=== PATIENT | female | born 1940 | race American Indian/Alaskan Native ===

== ENCOUNTER 2017-04-18 11:48 | Emergency (ER) | payer MEDICARE ==
[2017-04-18 12:54] LABS: Basophils % (Auto) 0.8 % (0.0-1.8); Eosinophils % (Auto) 3.7 % (0.0-4.3); Hematocrit 39.3 % (30.3-42.9); Hemoglobin 12.9 gm/dl (10.1-14.3); Mean Corpuscular HGB Conc 33 % (30-34); Mean Corpuscular Hemoglobin 30 pg (28-32); Mean Corpuscular Volume 90 fl (79-97); Platelet Count 204 K/mm3 (140-440); Red Blood Count 4.35 M/mm3 (3.65-5.03); Red Cell Distribution Width 15.5 % (13.2-15.2); White Blood Count 4.9 K/mm3 (4.5-11.0)
[2017-04-18 13:07] LABS: BUN/Creatinine Ratio 5.21; Calcium 9.1 mg/dL (8.4-10.2); Chloride 102.9 mmol/L (98-107)
--- NOTE | 2017-04-18 13:12 | XRay Report ---
Chest 2 views: History: Pain left rib cage. Findings: Normal cardiomediastinal silhouette. Trachea is midline. Pleural thickening left CP angle with scarring. No acute consolidation. Impression: Left pleural thickening with scarring in the adjacent lung parenchyma.
--- NOTE | 2017-04-18 17:11 | Emergency Department Report ---
ED General Adult HPI - General Chief complaint: Fall Stated complaint: FALL, LEFT SIDE PAIN Time Seen by Provider: 04/18/17 15:21 Source: patient Mode of arrival: Ambulatory Limitations: No Limitations - History of Present Illness Initial comments: Pt is a 76-year-old female past history of end-stage renal disease and hypertension who presents status post fall. She was walking earlier on this morning when she had a fall. Patient tripped on an open vent that the daughter left open. Patient had a ground-level fall. Patient had no loss of consciousness. She fell on her left side she did not hit her head. Patient is able to ablate after the fall. Patient has no lightheadedness, no chest pain she has left-sided rib pain that is a 5 out 10 worse with movement better with rest. It is an achy type of pain that doesn't radiate. Patient is not complaining of any other symptoms. - Related Data Previous Rx's Medication Instructions Recorded Last Taken Type Acetaminophen [Shake That Ache] 1,000 mg PO Q6HR #30 tablet 04/18/17 Unknown Rx Allergies Allergy/AdvReac Type Severity Reaction Status Date / Time Unable to Assess Allergy Unverified 04/18/17 11:59 ED Review of Systems ROS: Stated complaint: FALL, LEFT SIDE PAIN Other details as noted in HPI Constitutional: denies: chills, fever Eyes: denies: eye pain, eye discharge, vision change ENT: denies: ear pain, throat pain Respiratory: denies: cough, shortness of breath, wheezing Cardiovascular: denies: chest pain, palpitations Endocrine: no symptoms reported Gastrointestinal: denies: abdominal pain, nausea, diarrhea Genitourinary: denies: urgency, dysuria, discharge Musculoskeletal: denies: back pain, joint swelling, arthralgia Skin: denies: rash, lesions Neurological: denies: headache, weakness, paresthesias Psychiatric: denies: anxiety, depression Hematological/Lymphatic: denies: easy bleeding, easy bruising ED Past Medical Hx - Past Medical History Previous Medical History?: Yes Hx Hypertension: Yes Hx Renal Disease: Yes Additional medical history: dialysis - Surgical History Additional Surgical History: fistula to left arm for dialysis - Social History Smoking Status: Never Smoker - Medications Home Medications: Home Medications Medication Instructions Recorded Confirmed Last Taken Type Acetaminophen [Shake That Ache] 1,000 mg PO Q6HR #30 tablet 04/18/17 Unknown Rx ED Physical Exam - General Limitations: No Limitations General appearance: alert, in no apparent distress - Head Head exam: Present: atraumatic, normocephalic - Eye Eye exam: Present: normal appearance - ENT ENT exam: Present: mucous membranes moist - Neck Neck exam: Present: normal inspection - Respiratory Respiratory exam: Present: normal lung sounds bilaterally, chest wall tenderness (left sided ). Absent: respiratory distress - Cardiovascular Cardiovascular Exam: Present: regular rate, normal rhythm. Absent: systolic murmur, diastolic murmur, rubs, gallop - GI/Abdominal GI/Abdominal exam: Present: soft, normal bowel sounds - Extremities Exam Extremities exam: Present: normal inspection - Back Exam Back exam: Present: normal inspection - Neurological Exam Neurological exam: Present: alert, oriented X3 - Psychiatric Psychiatric exam: Present: normal affect, normal mood - Skin Skin exam: Present: warm, dry, intact, normal color. Absent: rash ED Course Vital Signs 04/18/17 04/18/17 04/18/17 11:54 12:35 12:43 Temperature 97 F L Pulse Rate 101 H 91 H 93 H Respiratory 20 Rate Blood Pressure 201/101 Blood Pressure 186/72 [Left] O2 Sat by Pulse 100 100 Oximetry 04/18/17 04/18/17 04/18/17 12:46 13:00 13:15 Temperature Pulse Rate 92 H 90 90 Respiratory 15 10 L 10 L Rate Blood Pressure 163/65 162/72 141/91 Blood Pressure [Left] O2 Sat by Pulse 100 Oximetry 04/18/17 04/18/17 04/18/17 13:30 13:45 14:00 Temperature Pulse Rate 83 82 86 Respiratory 19 12 23 Rate Blood Pressure 165/71 165/76 176/75 Blood Pressure [Left] O2 Sat by Pulse Oximetry 04/18/17 04/18/17 04/18/17 14:15 14:30 14:45 Temperature Pulse Rate 84 86 85 Respiratory 19 20 15 Rate Blood Pressure 163/72 171/81 175/82 Blood Pressure [Left] O2 Sat by Pulse 94 96 99 Oximetry 04/18/17 04/18/17 04/18/17 15:00 15:15 15:30 Temperature Pulse Rate 85 84 83 Respiratory 18 19 21 Rate Blood Pressure 177/79 165/76 180/79 Blood Pressure [Left] O2 Sat by Pulse 98 97 96 Oximetry ED Medical Decision Making - Lab Data Result diagrams: 04/18/17 12:36 04/18/17 12:36 Lab Results 04/18/17 04/18/17 Range/Units 12:36 12:36 WBC 4.9 (4.5-11.0) K/mm3 RBC 4.35 (3.65-5.03) M/mm3 Hgb 12.9 (10.1-14.3) gm/dl Hct 39.3 (30.3-42.9) % MCV 90 (79-97) fl MCH 30 (28-32) pg MCHC 33 (30-34) % RDW 15.5 H (13.2-15.2) % Plt Count 204 (140-440) K/mm3 Lymph % (Auto) 18.3 (13.4-35.0) % [place] % (Auto) 5.2 (0.0-7.3) % Eos % (Auto) 3.7 (0.0-4.3) % Baso % (Auto) 0.8 (0.0-1.8) % Lymph # 0.9 L (1.2-5.4) K/mm3 [place] # 0.3 (0.0-0.8) K/mm3 Eos # 0.2 (0.0-0.4) K/mm3 Baso # 0.0 (0.0-0.1) K/mm3 Seg Neutrophils % 72.0 H (40.0-70.0) % Seg Neutrophils # 3.6 (1.8-7.7) K/mm3 Sodium 141 (137-145) mmol/L Potassium 4.0 (3.6-5.0) mmol/L Chloride 102.9 (98-107) mmol/L Carbon Dioxide 25 (22-30) mmol/L Anion Gap 17 mmol/L BUN 12 (7-17) mg/dL Creatinine 2.3 H (0.7-1.2) mg/dL Estimated GFR 25 ml/min BUN/Creatinine Ratio 5.21 % Glucose 144 H (65-100) mg/dL Calcium 9.1 (8.4-10.2) mg/dL - Radiology Data Radiology results: report reviewed, image reviewed Chest x-ray: Shows lung parenchymal scarring otherwise no acute cardiopulmonary disease. - Medical Decision Making Chief medical diagnosis: Left rib fracture Differential multiple diagnosis: Possible muscle hematoma, anemia I will get chest x-ray, CBC, CMP and oral analgesic pain medication Patient's chest x-ray is unremarkable for rib fracture. Patient's laboratory work shows elevated creatinine which is consistent with her chronic kidney disease. I'll send patient home with Tylenol and I will have patient follow up with PCP. Patient agrees with plan and additional verbal discharge instructions were given. Critical care attestation.: If time is entered above; I have spent that time in minutes in the direct care of this critically ill patient, excluding procedure time. ED Disposition Clinical Impression: Rib pain on left side Fall Qualifiers: Encounter type: initial encounter Qualified Code(s): W19.XXXA - Unspecified fall, initial encounter CKD (chronic kidney disease) Qualifiers: Chronic kidney disease stage: on chronic dialysis Qualified Code(s): N18.6 - End stage renal disease; Z99.2 - Dependence on renal dialysis Disposition: TO HOME OR SELFCARE Is pt being admited?: No Does the pt Need Aspirin: No Condition: Stable Instructions: Fall Prevention for Older Adults (ED) Prescriptions: Acetaminophen [Shake That Ache] 1,000 mg PO Q6HR #30 tablet Referrals: PRIMARY CARE, [Primary Care Provider] - 3-5 Days
[2017-04-18] MEDS ORDERED: TYLENOL PO ONE (17:51)
[2017-04-18] MEDS ORDERED: MOTRIN PO ONE (17:51)
[2017-04-18 19:59] VITALS: BP 186/87
== END 2017-04-18 19:30 | disposition home or self-care (01) ==
LOC: ED 11:48
DX: R07.81 Pleurodynia (principal); I13.11 Hypertensive heart and chronic kidney disease without heart failure, with stage 5 chronic kidney disease, or end stage renal disease; N18.6 End stage renal disease; Z99.2 Dependence on renal dialysis; W18.30XA Fall on same level, unspecified, initial encounter; Y93.9 Activity, unspecified; Y92.89 Other specified places as the place of occurrence of the external cause; Y99.9 Unspecified external cause status
CPT/HCPCS: 36415; 71020; 80048; 82962; 85025

== ENCOUNTER 2019-12-01 11:43 | Observation (INO) | payer MEDICARE ==
[2019-12-01] MEDS ORDERED: ONDANSETRON 4 MG/2 ML INJ IV ONE (12:36)
[2019-12-01] MEDS ORDERED: SODIUM CHLORIDE 0.9% 1000 ML 1,000 ML IV ONE (12:36)
[2019-12-01 13:20] LABS: Basophils # (Auto) 0.1 K/mm3 (0.0-0.1); Basophils % (Auto) 0.9 % (0.0-1.8); Eosinophils % (Auto) 0.1 % (0.0-4.3); Hemoglobin 12.6 gm/dl (10.1-14.3); Lymphocytes % (Auto) 12.1 % (13.4-35.0); Mean Corpuscular HGB Conc 33 % (30-34); Mean Corpuscular Volume 93 fl (79-97); Monocytes # (Auto) 0.7 K/mm3 (0.0-0.8); Monocytes % (Auto) 7.7 % (0.0-7.3); Platelet Count 245 K/mm3 (140-440); Red Cell Distribution Width 15.6 % (13.2-15.2)
--- NOTE | 2019-12-01 13:32 | XRay Report ---
CHEST 1 VIEW INDICATION: hypoxia. COMPARISON: 07/17/2019. FINDINGS: Support devices: None. Heart: Stable. Lungs/Pleura: Mild effusion/atelectasis at the bases right greater than left. Mild vascular congestio n. Additional findings: None. IMPRESSION: Mild changes of congestive failure. Signer Name: Lázaro Donahue MD Signed: 12/01/2019 1:28 PM Workstation Name: [id number]
[2019-12-01 13:37] LABS: Calcium 9.1 mg/dL (8.4-10.2)
--- NOTE | 2019-12-01 15:16 | Emergency Department Report ---
ED General Adult HPI - General Chief complaint: Weakness Stated complaint: WEAKNESS PUI?: No Time Seen by Provider: 12/01/19 12:18 Source: EMS Mode of arrival: Stretcher Limitations: No Limitations - History of Present Illness Initial comments: Patient is 79-year-old F Sammar[place] female with past medical history of hypertension diabetes and end-stage renal disease who goes to dialysis on Saturday who is presenting with weakness. Patient initially signed in stating that her bilateral legs were weak however on further questioning she states she is just weak all over. Patient states symptoms started yesterday. Patient had several episodes of nausea vomiting. Patient states the nausea has improved today. Patient denies shortness of breath however she states that when she walks I just feel really tired". She denies chest pain fevers chills diarrhea neck stiffness or sore throat at this time. Severity scale (0 -10): 0 - Related Data Home Medications Medication Instructions Recorded Confirmed Last Taken Acetaminophen [Shake That Ache] 1,000 mg PO Q6HR PRN 07/20/19 07/20/19 Unknown Previous Rx's Medication Instructions Recorded Last Taken Type Oseltamivir Phosphate [Tamiflu] 30 mg PO POSTHD 5 Days oralsyr 07/22/19 Unknown Rx Allergies Allergy/AdvReac Type Severity Reaction Status Date / Time No Known Allergies Allergy Unverified 04/18/17 19:55 ED Review of Systems ROS: Stated complaint: WEAKNESS Other details as noted in HPI Comment: All other systems reviewed and negative ED Past Medical Hx - Past Medical History Hx Hypertension: Yes Hx Diabetes: Yes Hx Renal Disease: Yes Additional medical history: dialysis - Surgical History Additional Surgical History: fistula to left arm for dialysis - Social History Smoking Status: Current Some Day Smoker Substance Use Type: None - Medications Home Medications: Home Medications Medication Instructions Recorded Confirmed Last Taken Type Acetaminophen [Shake That Ache] 1,000 mg PO Q6HR PRN 07/20/19 07/20/19 Unknown History Oseltamivir Phosphate [Tamiflu] 30 mg PO POSTHD 5 Days oralsyr 07/22/19 Unknown Rx ED Physical Exam - General Limitations: No Limitations General appearance: alert, in no apparent distress - Head Head exam: Present: atraumatic, normocephalic - Eye Eye exam: Present: normal appearance - ENT ENT exam: Present: mucous membranes moist - Neck Neck exam: Present: normal inspection - Respiratory Respiratory exam: Present: rales. Absent: normal lung sounds bilaterally, respiratory distress, wheezes, rhonchi, chest wall tenderness - Cardiovascular Cardiovascular Exam: Present: regular rate, normal rhythm, normal heart sounds. Absent: systolic murmur, diastolic murmur, rubs, gallop - GI/Abdominal GI/Abdominal exam: Present: soft, normal bowel sounds. Absent: distended, tenderness, guarding, rebound - Extremities Exam Extremities exam: Present: normal inspection - Back Exam Back exam: Present: normal inspection - Neurological Exam Neurological exam: Present: alert, oriented X3 - Psychiatric Psychiatric exam: Present: normal affect, normal mood - Skin Skin exam: Present: warm, dry, intact, normal color. Absent: rash ED Course Vital Signs 12/01/19 12/01/19 12/01/19 11:54 11:58 12:00 Temperature 99.5 F Pulse Rate 122 H 119 H 119 H Respiratory 23 18 17 Rate Blood Pressure 120/65 120/65 O2 Sat by Pulse 91 92 90 Oximetry 12/01/19 12/01/19 12/01/19 12:01 13:00 14:47 Temperature Pulse Rate 117 H 116 H Respiratory 15 20 24 Rate Blood Pressure 119/68 119/68 O2 Sat by Pulse 89 98 96 Oximetry ED Medical Decision Making - Lab Data Result diagrams: 12/01/19 12:35 12/01/19 12:45 Lab Results 12/01/19 12/01/19 Range/Units 12:35 12:45 WBC 8.6 (4.5-11.0) K/mm3 RBC 4.10 (3.65-5.03) M/mm3 Hgb 12.6 (10.1-14.3) gm/dl Hct 38.0 (30.3-42.9) % MCV 93 (79-97) fl MCH 31 (28-32) pg MCHC 33 (30-34) % RDW 15.6 H (13.2-15.2) % Plt Count 245 (140-440) K/mm3 Lymph % (Auto) 12.1 L (13.4-35.0) % [place] % (Auto) 7.7 H (0.0-7.3) % Eos % (Auto) 0.1 (0.0-4.3) % Baso % (Auto) 0.9 (0.0-1.8) % Lymph # 1.0 L (1.2-5.4) K/mm3 [place] # 0.7 (0.0-0.8) K/mm3 Eos # 0.0 (0.0-0.4) K/mm3 Baso # 0.1 (0.0-0.1) K/mm3 Seg Neutrophils % 79.2 H (40.0-70.0) % Seg Neutrophils # 6.8 (1.8-7.7) K/mm3 Sodium 140 (137-145) mmol/L Potassium 3.8 (3.6-5.0) mmol/L Chloride 98.2 (98-107) mmol/L Carbon Dioxide 24 (22-30) mmol/L Anion Gap 22 mmol/L BUN 28 H (7-17) mg/dL Creatinine 6.8 H (0.7-1.2) mg/dL Estimated GFR 7 ml/min BUN/Creatinine Ratio 4 % Glucose 137 H (65-100) mg/dL Calcium 9.1 (8.4-10.2) mg/dL - Radiology Data [facility] [address] [place] [address] XRay Report Signed Patient: ASHTYN WAYNE MR#: [id number] 1 : 1940 Acct:[id number] Age/Sex: 79 / F ADM Date: 12/01/19 Loc: ED Attending Dr: Ordering Physician: GWENDOLYN SILVEIRA MD Date of Service: 12/01/19 Procedure(s): XR chest 1V ap Accession Number(s): [id number] cc: GWENDOLYN SILVEIRA MD Fluoro Time In Minutes: CHEST 1 VIEW INDICATION: hypoxia. COMPARISON: 07/17/2019. FINDINGS: Support devices: None. Heart: Stable. Lungs/Pleura: Mild effusion/atelectasis at the bases right greater than left. Mild vascular congestion. Additional findings: None. IMPRESSION: Mild changes of congestive failure. Signer Name: Lázaro Donahue MD Signed: 12/01/2019 1:28 PM Workstation Name: [id number] - Medical Decision Making Patient is 79-year-old F [place] female who is presenting with generalized weakness. On arrival the patient's O2 sat was 89%. Patient responded well to oxygen. Chest x-ray is consistent with some mild fluid overload. Patient is not due for dialysis until tomorrow however does appear that she is requiring oxygen and will need to be admitted for observation. Her solar water heater installer has been consulted. Patient is remained slightly tachycardic. Patient does state that she makes urine and on initial exam patient was given a small amount of fluids to see if this will help with her tachycardia since she had several episodes of nausea vomiting yesterday with the possibility of mild dehydration. Once the x- ray was seen the fluids were discontinued. Patient states she is no longer actively vomiting or nauseous at this time. Critical care attestation.: If time is entered above; I have spent that time in minutes in the direct care of this critically ill patient, excluding procedure time. ED Disposition Clinical Impression: End-stage renal disease needing dialysis, Pulmonary edema, Hypoxia, Tachycardia Disposition: OP ADMIT IP TO THIS HOSP Is pt being admited?: Yes Does the pt Need Aspirin: No Condition: Stable Referrals: PRIMARY CARE, [Primary Care Provider] - 3-5 Days Time of Disposition: 15:16
[2019-12-01] MEDS ORDERED: ONDANSETRON 4 MG/2 ML INJ IV PRN (15:27)
--- NOTE | 2019-12-01 15:27 | History and Physical Report ---
History of Present Illness Chief complaint: I feel weak History of present illness: 79 YO Female with ESRD on HD(M,W,F), HTN, DM, Dementia, Nicotine Dependence presents to ED for evaluation. Patient states that she underwent dialysis yesterday and during dialysis she experienced generalized weakness, confusion, and fatigue. Patient states that the aforementioned symptoms have persisted overnight. Patient also reports difficulty with ambulating due to weakness. EMS notified and upon arrival the patient was found to be in distress and subsequently transported to [facility] for further evaluation and care. Patient seen and evaluated in the emergency department. Lab and imaging studies reviewed. Patient found to have end-stage renal disease complicated by dialysis disequilibrium syndrome. Patient placed in observation status and admitted to medical floor due to increased risk for decompensation. Nephrology team consulted in ED. Patient denies fever, chills, chest pain, palpitations, productive cough, skin rash, known ill contacts, or known exposure to COVID-19. Advanced care planning conducted in ED. Past History Past Medical History: diabetes, ESRD, hypertension, other (See HPI) Past Surgical History: Other (Dialysis access) Social history: , smoking Family history: diabetes, hypertension Medications and Allergies Allergies Allergy/AdvReac Type Severity Reaction Status Date / Time No Known Allergies Allergy Unverified 04/18/17 19:55 Home Medications Medication Instructions Recorded Confirmed Last Taken Type Acetaminophen [Shake That Ache] 1,000 mg PO Q6HR PRN 07/20/19 12/01/19 Unknown History Oseltamivir Phosphate [Tamiflu] 30 mg PO POSTHD 5 Days oralsyr 07/22/19 12/01/19 Unknown Rx Review of Systems Constitutional: fatigue, weakness, no weight gain, no fever, no chills Ears, nose, mouth and throat: no ear pain, no ear discharge, no tinnitis, no decreased hearing Breasts: no change in shape, no swelling, no mass Cardiovascular: no chest pain, no palpitations, no rapid/irregular heart beat, no edema Respiratory: no cough, no cough with sputum, no excessive sputum, no hemoptysis Gastrointestinal: nausea, no vomiting, no diarrhea, no constipation Genitourinary Female: no pelvic pain, no flank pain, no menorrhagia, no dysuria, no urinary frequency, no urgency Rectal: no pain, no incontinence, no bleeding Musculoskeletal: no neck stiffness, no neck pain, no shooting arm pain, no arm numbness/tingling, no low back pain Integumentary: no rash, no pruritis, no redness, no sores, no jaundice Neurological: no paralysis, no weakness, no parathesias, no numbness, no tingling Psychiatric: no anxiety, no memory loss, no change in sleep habits, no sleep disturbances, no insomnia Endocrine: no cold intolerance, no heat intolerance, no polyphagia, no excessive thirst, no polyuria Hematologic/Lymphatic: no easy bruising, no lymphadenopathy Allergic/Immunologic: no urticaria, no allergic rhinitis, no persistent infections Exam - Constitutional Vitals: Temp Pulse Resp BP Pulse Ox 99.5 F 116 H 24 119/68 96 12/01/19 11:58 12/01/19 14:47 12/01/19 14:47 12/01/19 14:47 12/01/19 14:47 General appearance: Present: mild distress - EENT Eyes: Present: PERRL ENT: hearing intact, clear oral mucosa - Neck Neck: Present: supple, normal ROM - Respiratory Respiratory effort: normal Respiratory: bilateral: CTA - Cardiovascular Heart Sounds: Present: S1 & S2. Absent: rub, click - Extremities Extremities: pulses symmetrical, No edema Peripheral Pulses: within normal limits - Abdominal General gastrointestinal: Present: soft, non-tender, non-distended, normal bowel sounds Female genitourinary: Present: normal - Integumentary Integumentary: Present: clear, warm, dry - Musculoskeletal Musculoskeletal: generalized weakness - Psychiatric Psychiatric: appropriate mood/affect, intact judgment & insight - Neurologic Neurologic: CNII-XII intact, moves all extremities, no gait normal Results - Labs CBC & Chem 7: 12/01/19 12:35 12/01/19 12:45 Labs: Abnormal lab results 12/01/19 12/01/19 Range/Units 12:35 12:45 RDW 15.6 H (13.2-15.2) % Lymph % (Auto) 12.1 L (13.4-35.0) % [place] % (Auto) 7.7 H (0.0-7.3) % Lymph # 1.0 L (1.2-5.4) K/mm3 Seg Neutrophils % 79.2 H (40.0-70.0) % BUN 28 H (7-17) mg/dL Creatinine 6.8 H (0.7-1.2) mg/dL Glucose 137 H (65-100) mg/dL Assessment and Plan - Patient Problems (1) End stage renal disease Current Visit: Yes Status: Acute Plan to address problem: Nephrology consulted in ED, strict I's/O, daily weight, monitor urine output every shift, BMP, repeat BMP in a.m., dialysis as per renal team. (2) Dialysis disequilibrium syndrome Current Visit: Yes Status: Acute Plan to address problem: BMP, supportive care, neuro check. IV fluid resuscitation as clinically indicated, encourage free water intake. (3) Hypertension Current Visit: Yes Status: Acute Qualifiers: Hypertension type: essential hypertension Qualified Code(s): I10 - E ssential (primary) hypertension Plan to address problem: Monitor blood pressure every shift, continue medical management. Supportive care. (4) Nicotine dependence Current Visit: Yes Status: Acute Qualifiers: Nicotine product type: cigarettes Substance use status: in withdrawal Qualified Code(s): F17.213 - Nicotine dependence, cigarettes, with withdrawal Plan to address problem: Smoking cessation counseling, supportive care, behavior change counseling. +15 minutes. (5) Diabetes mellitus Current Visit: Yes Status: Acute Plan to address problem: Sliding scale insulin therapy, Accu-Chek, consistent carbohydrate diet, hypoglycemia protocol (6) DVT prophylaxis Current Visit: No Status: Acute Plan to address problem: SCD to bilateral lower extremities while in bed, supportive care. Patient is ambulatory (7) Advance care planning Current Visit: Yes Status: Acute Plan to address problem: Patient is full code, disease education conducted, patient knowledges understanding and agreement with care plan, +30 minutes.
[2019-12-01] MEDS: ACETAMINOPHEN 325 MG TAB PO PRN (21:20)
[2019-12-02] MEDS ORDERED: SODIUM CHLORIDE 0.9% 100 ML IV PRN (06:15)
[2019-12-02 09:35] LABS: Calcium 8.8 mg/dL (8.4-10.2)
[2019-12-02 10:34] LABS: Hepatitis B Surface Antigen Non-Reactive (Negative); Hepatitis C Virus Antibody Non-Reactive (NonReactive)
[2019-12-02] MEDS ORDERED: SODIUM CHLORIDE*PRIMING MACHINE ONLY FOR DIALYSIS MC ONE (12:02)
--- NOTE | 2019-12-02 12:29 | Consultation ---
History of Present Illness - Reason for Consult Consult date: 12/02/19 end stage renal disease - History of Present Illness Mrs. Lemus is an 79yo with ESRD on HD MWF, hypertension, dementia who presented to the ED with generalized weakness impairing ability to ambulate. She reports being in usual state of health until dialysis. She reports episode of emesis during treatment. Following treatment, she felt weak, fatigued. EMS was called to patient's home and she was transported to the ED for evaluation. She denies fever, chills, chest pain, SOB, productive cough, dysuria. There is no hx of skin rash, known ill contacts, or known exposure to COVID-19 In the ED, patient was hypoxic requiring 2L NC oxygen. Work up was notable for CXR - mild vascular congestion, mild effusion/atelectasis. She has been admitted for evaluation. Temperature 100.4 overnight. Past History Past Medical History: diabetes, ESRD, hypertension, other (See HPI) Past Surgical History: Other (Dialysis access) Social history: , smoking Family history: diabetes, hypertension Medications and Allergies Allergies Allergy/AdvReac Type Severity Reaction Status Date / Time No Known Allergies Allergy Unverified 04/18/17 19:55 Home Medications Medication Instructions Recorded Confirmed Last Taken Type Acetaminophen [Shake That Ache] 1,000 mg PO Q6HR PRN 07/20/19 12/01/19 Unknown History Oseltamivir Phosphate [Tamiflu] 30 mg PO POSTHD 5 Days oralsyr 07/22/19 12/01/19 Unknown Rx Active Meds: Active Medications Acetaminophen (Tylenol) 650 mg PO Q4H PRN PRN Reason: Pain MILD(1-3)/Fever >100.5/BARRIENTOS Last Admin: 12/01/19 21:20 Dose: 650 mg Documented by: Sodium Chloride (Nacl 0.9%) 100 mls @ 999 mls/hr IV RAMU PRN PRN Reason: Hypotension Ondansetron HCl (Zofran) 4 mg IV Q8H PRN PRN Reason: Nausea And Vomiting Sodium Chloride (Sodium Chloride Flush Syringe 10 Ml) 10 ml IV BID DANIELLE Last Admin: 12/02/19 09:31 Dose: 10 ml Documented by: Sodium Chloride (Sodium Chloride Flush Syringe 10 Ml) 10 ml IV PRN PRN PRN Reason: LINE FLUSH Review of Systems All systems: negative Exam - Vital Signs Vital signs: Vital Signs Pulse Resp Pulse Ox 122 H 23 91 12/01/19 11:54 12/01/19 11:54 12/01/19 11:54 - General Appearance General appearance: well-developed, frail EENT: ATNC Respiratory: Clear to Ascultation Heart: regular, S1S2 Gastrointestinal: Present: normal. Absent: tenderness, distended Integumentary: no rash, warm and dry Neurologic: no focal deficit Musculoskeletal: Present: other (no edema) Psychiatric: cooperative Results - Lab Results 12/01/19 12:35 12/02/19 08:41 Most recent lab results Calcium 8.8 mg/dL (8.4-10.2) 12/02/19 08:41 Assessment and Plan Impression: * End stage renal disease * Acute hypoxic respiratory failure r/o pulmonary edema vs infectious etiology * Low grade fever * Generalized weakness * Anemia Plan: * Hemodialysis today * UF as tolerated * Continue MWF schedule * Will obtain blood cx in light of temp 100.4 in dialysis patient; can collect during HD * Will also order UA and urine cx if patient able to provide sample * Dose medications for renal function * Renal diet
--- NOTE | 2019-12-02 16:07 | Progress Note ---
Assessment and Plan - Patient Problems (1) End stage renal disease Current Visit: Yes Status: Acute Plan to address problem: Nephrology consulted in ED, strict I's/O, daily weight, monitor urine output every shift, BMP, repeat BMP in a.m., dialysis as per renal team. Discharge planning in a.m. pending postdialysis reevaluation. (2) Dialysis disequilibrium syndrome Current Visit: Yes Status: Acute Plan to address problem: BMP, supportive care, neuro check. IV fluid resuscitation as clinically indicated, encourage free water intake. (3) Hypertension Current Visit: Yes Status: Acute Qualifiers: Hypertension type: essential hypertension Qualified Code(s): I10 - Essential (primary) hypertension Plan to address problem: Monitor blood pressure every shift, continue medical management. Supportive care. (4) Nicotine dependence Current Visit: Yes Status: Acute Qualifiers: Nicotine product type: cigarettes Substance use status: in withdrawal Qualified Code(s): F17.213 - Nicotine dependence, cigarettes, with withdrawal Plan to address problem: Smoking cessation counseling, supportive care, behavior change counseling. +15 minutes. (5) Diabetes mellitus Current Visit: Yes Status: Acute Plan to address problem: Sliding scale insulin therapy, Accu-Chek, consistent carbohydrate diet, hypoglycemia protocol (6) DVT prophylaxis Current Visit: No Status: Acute Plan to address problem: SCD to bilateral lower extremities while in bed, supportive care. Patient is ambulatory (7) Advance care planning Current Visit: Yes Status: Acute History Interval history: 79 YO Female HD #2 with ESRD, Dialysis Disequilibrium Syndrome. Pt convalesced well overnight. Patient states that she feels somewhat better today. Patient denies fever, chills, chest pain, palpitations, shortness of breath, productive cough, or recent ill contacts. No reported nursing events today. Nephrology consulted. Dialysis schedule as per renal team. Discharge planning in a.m. Hospitalist Physical - Constitutional Vitals: Temp Pulse Resp BP Pulse Ox 98.7 F 115 H 16 131/69 98 12/02/19 14:44 12/02/19 14:44 12/02/19 14:44 12/02/19 14:44 12/02/19 08:16 General appearance: Present: mild distress - EENT Eyes: Present: PERRL ENT: hearing intact - Neck Neck: Present: supple - Respiratory Respiratory: bilateral: CTA - Cardiovascular Rhythm: regular Heart Sounds: Present: S1 & S2 - Extremities Extremities: no ischemia Peripheral Pulses: within normal limits - Abdominal General gastrointestinal: soft, non-tender, tender - Integumentary Integumentary: Present: clear, warm, dry - Psychiatric Psychiatric: appropriate mood/affect, cooperative - Neurologic Neurologic: CNII-XII intact Results - Labs CBC & Chem 7: 12/01/19 12:35 12/02/19 08:41 Labs: Laboratory Last Values WBC 8.6 K/mm3 (4.5-11.0) 12/01/19 12:35 RBC 4.10 M/mm3 (3.65-5.03) 12/01/19 12:35 Hgb 12.6 gm/dl (10.1-14.3) 12/01/19 12:35 Hct 38.0 % (30.3-42.9) 12/01/19 12:35 MCV 93 fl (79-97) 12/01/19 12:35 MCH 31 pg (28-32) 12/01/19 12:35 MCHC 33 % (30-34) 12/01/19 12:35 RDW 15.6 % (13.2-15.2) H 12/01/19 12:35 Plt Count 245 K/mm3 (140-440) 12/01/19 12:35 Lymph % (Auto) 12.1 % (13.4-35.0) L 12/01/19 12:35 [place] % (Auto) 7.7 % (0.0-7.3) H 12/01/19 12:35 Eos % (Auto) 0.1 % (0.0-4.3) 12/01/19 12:35 Baso % (Auto) 0.9 % (0.0-1.8) 12/01/19 12:35 Lymph # 1.0 K/mm3 (1.2-5.4) L 12/01/19 12:35 [place] # 0.7 K/mm3 (0.0-0.8) 12/01/19 12:35 Eos # 0.0 K/mm3 (0.0-0.4) 12/01/19 12:35 Baso # 0.1 K/mm3 (0.0-0.1) 12/01/19 12:35 Seg Neutrophils % 79.2 % (40.0-70.0) H 12/01/19 12:35 Seg Neutrophils # 6.8 K/mm3 (1.8-7.7) 12/01/19 12:35 Sodium 143 mmol/L (137-145) 12/02/19 08:41 Potassium 4.2 mmol/L (3.6-5.0) 12/02/19 08:41 Chloride 102.1 mmol/L (98-107) 12/02/19 08:41 Carbon Dioxide 21 mmol/L (22-30) L 12/02/19 08:41 Anion Gap 24 mmol/L 12/02/19 08:41 BUN 36 mg/dL (7-17) H 12/02/19 08:41 Creatinine 7.4 mg/dL (0.7-1.2) H 12/02/19 08:41 Estimated GFR 6 ml/min 12/02/19 08:41 BUN/Creatinine Ratio 5 % 12/02/19 08:41 Glucose 101 mg/dL (65-100) H 12/02/19 08:41 Calcium 8.8 mg/dL (8.4-10.2) 12/02/19 08:41 Hepatitis A IgM Ab Non-reactive (NonReactive) 12/02/19 08:41 Hep Bs Antigen Non-reactive (Negative) 12/02/19 08:41 Hep B Core IgM Ab Non-reactive (NonReactive) 12/02/19 08:41 Hepatitis C Antibody Non-reactive (NonReactive) 12/02/19 08:41 Microbiology: Microbiology 12/02/19 13:00 Peripheral/Venous Blood Culture - Preliminary Culture in Progress 12/02/19 13:00 Peripheral/Venous Blood Culture - Preliminary Culture in Progress Parisi/IV: Voiding Method Toilet IV Catheter Type [Left Upper Peripheral IV arm] Active Medications - Current Medications Current Medications: Generic Name Dose Route Start Last Admin Trade Name Freq PRN Reason Stop Dose Admin Acetaminophen 650 mg 12/01/19 15:27 12/01/19 21:20 Tylenol PO 650 mg Q4H PRN Administration Pain MILD(1-3)/Fever >100.5/BARRIENTOS Sodium Chloride 100 mls @ 999 mls/hr 12/02/19 06:15 Nacl 0.9% IV RAMU PRN Hypotension Ondansetron HCl 4 mg 12/01/19 15:27 Zofran IV Q8H PRN Nausea And Vomiting Sodium Chloride 10 ml 12/01/19 22:00 12/02/19 09:31 Sodium Chloride Flush Syringe 10 Ml IV 10 ml BID DANIELLE Administration Sodium Chloride 10 ml 12/01/19 15:27 Sodium Chloride Flush Syringe 10 Ml IV PRN PRN LINE FLUSH
[2019-12-03] MEDS: ACETAMINOPHEN 325 MG TAB PO PRN (09:10)
[2019-12-03 12:18] LABS: Calcium 9.2 mg/dL (8.4-10.2)
--- NOTE | 2019-12-03 12:20 | Progress Note ---
Assessment and Plan Impression: * End stage renal disease * Acute hypoxic respiratory failure r/o pulmonary edema vs infectious etiology * Fever r/o bacteremia * Generalized weakness * Anemia Plan: * Continue HD MWF. No indication for HD today * UF as tolerated * Blood cx pending * Note temperature spike to 102.4 this AM - will start Vancomycin, phrmacy to dose * Dose medications for renal function * Renal diet Subjective Date of service: 12/03/19 Interval history: She has no complaints today Objective - Vital Signs Vital signs: Vital Signs - 12hr 12/03/19 12/03/19 12/03/19 03:28 04:00 05:03 Temperature 97.6 F Pulse Rate 104 H 106 H Respiratory 16 Rate Blood Pressure 93/53 O2 Sat by Pulse 96 Oximetry 12/03/19 08:36 Temperature 102.4 F H Pulse Rate 108 H Respiratory 18 Rate Blood Pressure 103/58 O2 Sat by Pulse 95 Oximetry - General Appearance General appearance: well-developed, well-nourished EENT: ATNC Respiratory: Present: Clear to Ascultation Cardiology: regular, S1S2 Gastrointestinal: normal, no tenderness, no distended Integumentary: no rash, warm and dry Neurologic: no focal deficit Psychiatric: cooperative - Lab 12/01/19 12:35 12/02/19 08:41 Most recent lab results Calcium 8.8 mg/dL (8.4-10.2) 12/02/19 08:41 Medications & Allergies - Medications Allergies/Adverse Reactions: Allergies No Known Allergies Allergy (Unverified 04/18/17 19:55) Home Medications: Home Medications Medication Instructions Recorded Confirmed Last Taken Type Acetaminophen [Shake That Ache] 1,000 mg PO Q6HR PRN 07/20/19 12/01/19 Unknown History Oseltamivir Phosphate [Tamiflu] 30 mg PO POSTHD 5 Days oralsyr 07/22/19 12/01/19 Unknown Rx Active Medications: Generic Name Dose Route Start Last Admin Trade Name Freq PRN Reason Stop Dose Admin Acetaminophen 650 mg 12/01/19 15:27 12/03/19 09:10 Tylenol PO 650 mg Q4H PRN Administration Pain MILD(1-3)/Fever >100.5/BARRIENTOS Sodium Chloride 100 mls @ 999 mls/hr 12/02/19 06:15 Nacl 0.9% IV RAMU PRN Hypotension Ondansetron HCl 4 mg 12/01/19 15:27 Zofran IV Q8H PRN Nausea And Vomiting Sodium Chloride 10 ml 12/01/19 22:00 12/03/19 09:10 Sodium Chloride Flush Syringe 10 Ml IV 10 ml BID DANIELLE Administration Sodium Chloride 10 ml 12/01/19 15:27 Sodium Chloride Flush Syringe 10 Ml IV PRN PRN LINE FLUSH
[2019-12-03] MEDS ORDERED: VANCOMYCIN PHARMACY TO DOSE IV SCH (13:00)
[2019-12-03] MEDS ORDERED: VANCOMYCIN/NS 1 GM/250 ML 1 GM/250 ML BAG IV ONE (13:30)
--- NOTE | 2019-12-03 16:31 | Progress Note ---
Assessment and Plan - Patient Problems (1) End stage renal disease Current Visit: Yes Status: Acute Plan to address problem: Nephrology consulted in ED, strict I's/O, daily weight, monitor urine output every shift, BMP, repeat BMP in a.m., dialysis as per renal team. Discharge planning in a.m. pending postdialysis reevaluation. Pt has recorded feevr to 102.4. blood cultures no growth. (2) Dialysis disequilibrium syndrome Current Visit: Yes Status: Acute Plan to address problem: BMP, supportive care, neuro check. IV fluid resuscitation as clinically indicated, encourage free water intake. (3) Hypertension Current Visit: Yes Status: Acute Qualifiers: Hypertension type: essential hypertension Qualified Code(s): I10 - Esse ntial (primary) hypertension Plan to address problem: Monitor blood pressure every shift, continue medical management. Supportive care. (4) Nicotine dependence Current Visit: Yes Status: Acute Qualifiers: Nicotine product type: cigarettes Substance use status: in withdrawal Qualified Code(s): F17.213 - Nicotine dependence, cigarettes, with withdrawal Plan to address problem: Smoking cessation counseling, supportive care, behavior change counseling. +15 minutes. (5) Diabetes mellitus Current Visit: Yes Status: Acute Plan to address problem: Sliding scale insulin therapy, Accu-Chek, consistent carbohydrate diet, hypoglycemia protocol (6) DVT prophylaxis Current Visit: No Status: Acute Plan to address problem: SCD to bilateral lower extremities while in bed, supportive care. Patient is ambulatory (7) Advance care planning Current Visit: Yes Status: Acute Plan to address problem: Patient is full code, disease education conducted, patient knowledges understanding and agreement with care plan, +30 minutes. History Interval history: 79 YO Female HD #3 with ESRD, Dialysis Disequilibrium Syndrome. Pt convalesced well overnight. Patient states that she feels somewhat better today. Patient denies fever, chills, chest pain, palpitations, shortness of breath, productive cough, or recent ill contacts. Nursing staff report fever to 102.4 today. Nephrology consulted. Dialysis schedule as per renal team. Blood cultures are negative for bacterial growth. D/C planning in am after dialysis. Hospitalist Physical - Constitutional Vitals: Temp Pulse Resp BP Pulse Ox 99.5 F 110 H 18 94/49 93 12/03/19 12:01 12/03/19 12:01 12/03/19 12:01 12/03/19 12:01 12/03/19 12:01 General appearance: Present: mild distress - EENT Eyes: Present: PERRL ENT: hearing intact - Neck Neck: Present: supple - Respiratory Respiratory: bilateral: CTA - Cardiovascular Rhythm: regular Heart Sounds: Present: S1 & S2 - Extremities Extremities: no ischemia Peripheral Pulses: within normal limits - Abdominal General gastrointestinal: soft, non-tender, non-distended - Integumentary Integumentary: Present: clear, warm, dry - Psychiatric Psychiatric: appropriate mood/affect, cooperative - Neurologic Neurologic: CNII-XII intact Results - Labs CBC & Chem 7: 12/01/19 12:35 12/03/19 11:36 Labs: Laboratory Last Values WBC 8.6 K/mm3 (4.5-11.0) 12/01/19 12:35 RBC 4.10 M/mm3 (3.65-5.03) 12/01/19 12:35 Hgb 12.6 gm/dl (10.1-14.3) 12/01/19 12:35 Hct 38.0 % (30.3-42.9) 12/01/19 12:35 MCV 93 fl (79-97) 12/01/19 12:35 MCH 31 pg (28-32) 12/01/19 12:35 MCHC 33 % (30-34) 12/01/19 12:35 RDW 15.6 % (13.2-15.2) H 12/01/19 12:35 Plt Count 245 K/mm3 (140-440) 12/01/19 12:35 Lymph % (Auto) 12.1 % (13.4-35.0) L 12/01/19 12:35 [place] % (Auto) 7.7 % (0.0-7.3) H 12/01/19 12:35 Eos % (Auto) 0.1 % (0.0-4.3) 12/01/19 12:35 Baso % (Auto) 0.9 % (0.0-1.8) 12/01/19 12:35 Lymph # 1.0 K/mm3 (1.2-5.4) L 12/01/19 12:35 [place] # 0.7 K/mm3 (0.0-0.8) 12/01/19 12:35 Eos # 0.0 K/mm3 (0.0-0.4) 12/01/19 12:35 Baso # 0.1 K/mm3 (0.0-0.1) 12/01/19 12:35 Seg Neutrophils % 79.2 % (40.0-70.0) H 12/01/19 12:35 Seg Neutrophils # 6.8 K/mm3 (1.8-7.7) 12/01/19 12:35 Sodium 139 mmol/L (137-145) 12/03/19 11:36 Potassium 3.4 mmol/L (3.6-5.0) L 12/03/19 11:36 Chloride 95.8 mmol/L (98-107) L 12/03/19 11:36 Carbon Dioxide 26 mmol/L (22-30) 12/03/19 11:36 Anion Gap 21 mmol/L 12/03/19 11:36 BUN 27 mg/dL (7-17) H 12/03/19 11:36 Creatinine 5.7 mg/dL (0.7-1.2) H 12/03/19 11:36 Estimated GFR 9 ml/min 12/03/19 11:36 BUN/Creatinine Ratio 5 % 12/03/19 11:36 Glucose 205 mg/dL (65-100) H 12/03/19 11:36 Calcium 9.2 mg/dL (8.4-10.2) 12/03/19 11:36 Hepatitis A IgM Ab Non-reactive (NonReactive) 12/02/19 08:41 Hep Bs Antigen Non-reactive (Negative) 12/02/19 08:41 Hep B Core IgM Ab Non-reactive (NonReactive) 12/02/19 08:41 Hepatitis C Antibody Non-reactive (NonReactive) 12/02/19 08:41 Microbiology: Microbiology 12/02/19 13:00 Peripheral/Venous Blood Culture - Preliminary NO GROWTH AFTER 24 HOURS 12/02/19 13:00 Peripheral/Venous Blood Culture - Preliminary NO GROWTH AFTER 24 HOURS Parisi/IV: Voiding Method Toilet IV Catheter Type [Left Upper Peripheral IV arm] Active Medications - Current Medications Current Medications: Generic Name Dose Route Start Last Admin Trade Name Freq PRN Reason Stop Dose Admin Acetaminophen 650 mg 12/01/19 15:27 12/03/19 09:10 Tylenol PO 650 mg Q4H PRN Administration Pain MILD(1-3)/Fever >100.5/BARRIENTOS Sodium Chloride 100 mls @ 999 mls/hr 12/02/19 06:15 Nacl 0.9% IV RAMU PRN Hypotension Ondansetron HCl 4 mg 12/01/19 15:27 Zofran IV Q8H PRN Nausea And Vomiting Sodium Chloride 10 ml 12/01/19 22:00 12/03/19 09:10 Sodium Chloride Flush Syringe 10 Ml IV 10 ml BID DANIELLE Administration Sodium Chloride 10 ml 12/01/19 15:27 Sodium Chloride Flush Syringe 10 Ml IV PRN PRN LINE FLUSH
[2019-12-04] MEDS ORDERED: SODIUM CHLORIDE*PRIMING MACHINE ONLY FOR DIALYSIS MC ONE (11:09)
--- NOTE | 2019-12-04 11:36 | Discharge Summary ---
Providers - Providers Date of Admission: 12/01/19 15:27 Attending physician: GANESH CHAO 12/01/19 15:29 Consult to Physician [CONS] Routine Comment: HE MONICA Armstrong/ DR CERDA @[id number] Consulting Provider: NASIR MARTINEZ Physician Instructions: Reason For Exam: esrd Primary care physician: MACHINE CLIPPER Hospitalization Condition: Stable Procedures: Dialysis Hospital course: 79 YO Female with ESRD on HD(M,W,F), HTN, DM, Dementia, Nicotine Dependence presented to ED for evaluation. Patient stated that she underwent dialysis yesterday and during dialysis she experienced generalized weakness, confusion, and fatigue. Patient stated that the aforementioned symptoms had persisted overnight. Patient also reported difficulty with ambulating due to weakness. EMS notified and upon arrival the patient was found to be in distress and subsequently transported to [facility] for further evaluation and care. Patient seen and evaluated in the emergency department. Lab and imaging studies reviewed. Patient found to have end-stage renal disease complicated by dialysis disequilibrium syndrome. Patient placed in observation status and admitted to medical floor due to increased risk for decompensation. Nephrology team consulted in ED. Patient convalesced well during hospital course. Patient underwent routine dialysis. Patient tolerated dialysis well. Patient symptom improved with supportive care. Patient medically optimized and back to usual state of health. Patient discharged home and instructed to resume prehospital dialysis schedule as per nephrology recommendations. Patient seen and evaluated prior to discharge. No significant new physical exam findings on exam. Patient is directed to follow-up with her primary care physician within 3 to 5 days. 35 minutes dedicated to patient discharge and coordination of care. Disposition: DC- TO HOME OR SELFCARE - Discharge Diagnoses (1) End stage renal disease Status: Acute (2) Dialysis disequilibrium syndrome Status: Acute (3) Hypertension Status: Acute Qualifiers: Hypertension type: essential hypertension Qualified Code(s): I10 - Essential (primary) hypertension (4) Nicotine dependence Status: Acute Qualifiers: Nicotine product type: cigarettes Substance use status: in withdrawal Qualified Code(s): F17.213 - Nicotine dependence, cigarettes, with withdrawal (5) Diabetes mellitus Status: Acute (6) DVT prophylaxis Status: Acute (7) Advance care planning Status: Acute Core Measure Documentation - Palliative Care Palliative Care/ Comfort Measures: Not Applicable - Core Measures Any of the following diagnoses?: none Exam - Constitutional Vitals: Temp Pulse Resp BP Pulse Ox 98.4 F 92 H 22 111/59 100 12/04/19 10:20 12/04/19 11:15 12/04/19 10:20 12/04/19 11:15 12/04/19 04:21 General appearance: Present: no acute distress, well-nourished - EENT Eyes: Present: PERRL ENT: hearing intact, clear oral mucosa - Neck Neck: Present: supple, normal ROM - Respiratory Respiratory effort: normal Respiratory: bilateral: CTA - Cardiovascular Heart Sounds: Present: S1 & S2. Absent: rub, click - Extremities Extremities: pulses symmetrical, No edema Peripheral Pulses: within normal limits - Abdominal General gastrointestinal: Present: soft, non-tender, non-distended, normal bowel sounds Female genitourinary: Present: normal - Integumentary Integumentary: Present: clear, warm, dry - Musculoskeletal Musculoskeletal: gait normal, strength equal bilaterally - Psychiatric Psychiatric: appropriate mood/affect, intact judgment & insight - Neurologic Neurologic: CNII-XII intact, moves all extremities Plan Activity: advance as tolerated Diet: renal Follow up with: PRIMARY CAREMD [Primary Care Provider] - 3-5 Days
[2019-12-04 14:30] VITALS: BP 107/65
--- NOTE | 2019-12-04 18:02 | Progress Note ---
Assessment and Plan Impression: * End stage renal disease * Acute hypoxic respiratory failure r/o pulmonary edema vs infectious etiology * Fever r/o bacteremia * Generalized weakness * Anemia Plan: * Continue HD MWF * UF as tolerated * Blood cx NGTD x 48hours * Dose medications for renal function * Renal diet * Note plans to d/c to home Subjective Date of service: 12/04/19 Interval history: Patient has no complaints today. Dressed in clothing - awaiting transportation home. Objective - Vital Signs Vital signs: Vital Signs - 12hr 12/04/19 12/04/19 12/04/19 07:45 10:20 10:30 Temperature 97.3 F L 98.4 F Pulse Rate 102 H 98 H Respiratory 20 22 Rate Blood Pressure 103/61 107/62 99/57 12/04/19 12/04/19 12/04/19 10:45 11:00 11:15 Temperature Pulse Rate 95 H 94 H 92 H Respiratory Rate Blood Pressure 110/61 110/60 111/59 12/04/19 12/04/19 12/04/19 11:30 11:45 12:00 Temperature Pulse Rate 89 94 H 94 H Respiratory Rate Blood Pressure 108/59 103/54 104/60 12/04/19 12/04/19 12/04/19 12:15 12:30 12:45 Temperature Pulse Rate 93 H 91 H 96 H Respiratory Rate Blood Pressure 101/56 107/56 97/52 12/04/19 12/04/19 12/04/19 13:00 13:15 13:30 Temperature Pulse Rate 98 H 96 H 99 H Respiratory Rate Blood Pressure 99/63 97/55 107/53 12/04/19 12/04/19 12/04/19 13:45 14:00 14:25 Temperature 98.4 F Pulse Rate 98 H 79 99 H Respiratory 20 Rate Blood Pressure 97/57 94/53 107/65 - General Appearance General appearance: well-developed, well-nourished EENT: ATNC Respiratory: Present: Clear to Ascultation Cardiology: regular, S1S2 Gastrointestinal: normal, no tenderness, no distended Integumentary: no rash, warm and dry Neurologic: no focal deficit Musculoskeletal: other (no edema) Psychiatric: cooperative - Lab 12/01/19 12:35 12/03/19 11:36 Most recent lab results Calcium 9.2 mg/dL (8.4-10.2) 12/03/19 11:36 Medications & Allergies - Medications Allergies/Adverse Reactions: Allergies No Known Allergies Allergy (Unverified 04/18/17 19:55) Home Medications: Home Medications Medication Instructions Recorded Confirmed Last Taken Type Acetaminophen [Shake That Ache] 1,000 mg PO Q6HR PRN 07/20/19 12/01/19 Unknown History Oseltamivir Phosphate [Tamiflu] 30 mg PO POSTHD 5 Days oralsyr 07/22/19 12/01/19 Unknown Rx
[2019-12-04] MEDS ORDERED: VANCOMYCIN/NS 1 GM/250 ML 1 GM/250 ML BAG IV SCH (22:00)
== END 2019-12-04 17:30 | disposition home or self-care (01) ==
LOC: ED 11:43 → 4A 15:27
PROVIDERS: ADMIT Internal Medicine; ATTEND Internal Medicine
DX: I12.0 Hypertensive chronic kidney disease with stage 5 chronic kidney disease or end stage renal disease (principal); E11.22 Type 2 diabetes mellitus with diabetic chronic kidney disease; N18.6 End stage renal disease; R41.0 Disorientation, unspecified; E87.8 Other disorders of electrolyte and fluid balance, not elsewhere classified; F03.90 Unspecified dementia, unspecified severity, without behavioral disturbance, psychotic disturbance, mood disturbance, and anxiety; J96.01 Acute respiratory failure with hypoxia; D64.9 Anemia, unspecified; R00.0 Tachycardia, unspecified; F17.213 Nicotine dependence, cigarettes, with withdrawal; Z99.2 Dependence on renal dialysis; Z79.899 Other long term (current) drug therapy
CPT/HCPCS: 36415; 71045; 80048; 80074; 85025; 87040; 94760; 96361; 96365; 99284; G0257; G0378; J3370; J7030